=== PATIENT | female | born 1985 | race African-American/Black ===

== ENCOUNTER 2016-10-14 18:01 | Emergency (ER) | payer MEDICAID ==
[~2016-10-14] VITALS: Ht 180.3 cm; Wt 104.3 kg
[~2016-10-14 18:01] MED LIST: ALBUTEROL SULF8.5 GM INH; AMOXICILLIN500 MG ORAL; AUGMENTIN 875-1 EAC1 ORAL; AZITHROMYCIN250 MG ORAL; BACTRIM DS TAB1 EAC1 ORAL; BACTRIM-DS1 EA ORAL; CEPHALEXIN500 MG ORAL; CHERATUSSIN AC118 ML PO; CYCLOBENZAPRINE10 MG ORAL; IBUPROFEN400 MG ORAL; IBUPROFEN600 MG ORAL; IBUPROFEN800 MG ORAL; KEFLEX500 MG PO; MACRODANTIN100 MG PO; NKM; PRENATAL VITAMIN; TYLENOL500 MG PO; [UNRECOGNIZED DRUG - REMARK]
[2016-10-14] MEDS ORDERED: IBUPROFEN600 MG ORAL (18:57)
[2016-10-14] MEDS ORDERED: ATIVAN0.5 MG ORAL (18:57)
[2016-10-14 19:20] VITALS: BP 109/74
--- NOTE | 2016-10-14 21:01 | Emergency Room Report ---
History of Present Illness General Chief Complaint: Chest Pain Source: Patient Present Illness HPI The patient is a 30-year-old female history of anxiety disorder presenting for chest pain for the past 3 days. She describes this pain as a 5/10 dull ache to the center of the chest and has been constant. She denies any radiating pain. She does admit to increased stress at work for the past week. She has been unable to see a psychiatrist since diagnosis by her primary doctor. She has not tried any medications. She denies any other symptoms including N, V, F, chills, SOB, WILL, dizziness Allergies: Coded Allergies: No Known Allergies (Unverified , 01/23/12) Patient History Past Medical History: see triage record Pertinent Family History: none Last Menstrual Period: 09/17/16 : 3 Para: 1 Reviewed Nursing Documentation: PMH: Agreed, PSxH: Agreed Nursing Documentation-PMH Past Medical History: No History, Except For Hx Diabetes: Yes - gestational Review of Systems All Other Systems: negative except mentioned in HPI Physical Exam Vital Signs Date Time Temp Pulse Resp B/P Pulse Ox O2 Delivery O2 Flow Rate FiO2 10/14/16 18:06 98.4 72 17 106/65 100 Room Air Sp02 EP Interpretation: reviewed, normal General Appearance: no apparent distress, alert, GCS 15, non-toxic Head: normocephalic, atraumatic Eyes: bilateral eye PERRL, bilateral eye normal inspection ENT: hearing grossly normal, normal pharynx, no angioedema, normal voice Neck: full range of motion, supple/symm/no masses Respiratory: lungs clear, normal breath sounds, speaking full sentences, other - TTP over the mid sternum Cardiovascular #1: regular rate, rhythm, no edema Gastrointestinal: normal bowel sounds, non tender, soft, non-distended, no guarding, no rebound Genitourinary: normal inspection, no CVA tenderness Musculoskeletal: back normal, gait/station normal, normal range of motion, calf tenderness Neurologic: alert, oriented x3, responsive, motor strength/tone normal, sensory intact, speech normal Psychiatric: judgement/insight normal, memory normal, mood/affect normal, no suicidal/homicidal ideation Skin: normal color, no rash, warm/dry, well hydrated Lymphatic: no adenopathy Medical Decision Making PA Attestation Dr. Hall is my supervising physician. Patient management was discussed with my supervising physician Diagnostic Impression: Primary Impression: Anxiety Additional Impression: Chest pain Qualified Codes: R07.9 - Chest pain, unspecified ER Course The patient is a 30-year-old female history of anxiety disorder presenting for chest pain Differential diagnosis include but not limited to ACS, PE, gastritis, anxiety PE: vitals WNL. NAD There is TTP over the center of sternum. RRR. No MRG. Otherwise unremarkable EKG is unremarkable. She will be treated with low dose ativan and motrin and needs to see psychiatry RONNA. ER precautions given EKG Diagnostic Results EP Interpretation: NSR. No acute changes Rate: normal - 83 Rhythm: NSR ST Segments: no acute changes ASA given to the pt in ED: No PA Scribe Text EKG was reviewed and read with my supervising physician. No acute ST segment changes are seen. Normal rate and rhythm. No acute changes. Last Vital Signs Date Time Temp Pulse Resp B/P Pulse Ox O2 Delivery O2 Flow Rate FiO2 10/14/16 19:20 79 16 109/74 99 Room Air 10/14/16 19:20 98.6 Status: improved Disposition: HOME, SELF-CARE Condition: Improved Scripts Lorazepam* (ATIVAN*) 0.5 Mg Tablet 0.5 MG ORAL THREE TIMES A DAY, #10 TAB Prov: INOCENCIO NICHOLE 10/14/16 Ibuprofen* (MOTRIN*) 600 Mg Tablet 600 MG ORAL Q8H Y for For Pain, #30 TAB 0 Refills Prov: INOCENCIO NICHOLE 10/14/16 Referrals: [facility]ERR[facility] (PCP) Patient Instructions: Nonspecific Chest Pain, Panic Attacks Additional Instructions: I discussed my findings with the patient. All questions and concerns have been answered. Treatment and medication compliance have been addressed. I advised the patient that they need to follow up with PMD in 3-5 days. Return to ED if symptoms worsen, new symptoms arise, or if needed for any reason. Patient verbalized understanding of discharge instructions. INOCENCIO NICHOLE Oct 14, 2016 21:01
--- NOTE | 2016-10-17 20:13 | Cardiology Report ---
APPROVED REPORT EKG Measurement Heart [id number] Normal sinus rhythm with sinus arrhythmia Normal ECG
== END 2016-10-14 19:20 | disposition home or self-care (01) ==
LOC: EMR 18:50
DX: F41.9 Anxiety disorder, unspecified (principal); R07.9 Chest pain, unspecified
CPT/HCPCS: 93005; 99283

== ENCOUNTER 2017-03-13 11:48 | Emergency (ER) | payer MEDICAID ==
[~2017-03-13] VITALS: Ht 180.3 cm; Wt 90.7 kg
[~2017-03-13 11:48] MED LIST changes: +ATIVAN0.5 MG ORAL
[2017-03-13 11:52] VITALS: BP 116/75
--- NOTE | 2017-03-13 12:22 | Emergency Room Report ---
History of Present Illness General Chief Complaint: Vaginal Source: Patient Present Illness HPI The patient is a 31-year-old female presenting for pelvic pain and . Last normal menstrual period 01/23/2017. She took 2 at home tests which were postitive. She noticed pink spotting on tissue paper with wiping the vagina. Abdominal pain is a 3/10 dull ache to the mid lower abdomen. This is felt as a cramping sensation. She denies any other vaginal discharge. She denies other symptoms including N, V, F, chills, CP, SOB, back pain, dysuria Allergies: Coded Allergies: No Known Allergies (Unverified , 01/23/12) Patient History Past Medical History: see triage record Pertinent Family History: none Last Menstrual Period: 01/23/17 Now: Yes - Home + x 2 Reviewed Nursing Documentation: PMH: Agreed, PSxH: Agreed Nursing Documentation-PMH Past Medical History: No Stated History Hx Diabetes: Yes - gestational Review of Systems All Other Systems: negative except mentioned in HPI Physical Exam Vital Signs Date Time Temp Pulse Resp B/P (MAP) Pulse Ox O2 Delivery O2 Flow Rate FiO2 03/13/17 11:52 98.8 70 16 116/75 100 Room Air Sp02 EP Interpretation: reviewed, normal General Appearance: no apparent distress, alert, GCS 15, non-toxic Head: normocephalic, atraumatic Eyes: bilateral eye normal inspection, bilateral eye PERRL ENT: hearing grossly normal, normal pharynx, no angioedema, normal voice Respiratory: chest non-tender, lungs clear, normal breath sounds, speaking full sentences Cardiovascular #1: regular rate, rhythm, no edema Gastrointestinal: normal bowel sounds, soft, no mass, no guarding, tenderness - suprapubic Rectal: deferred Genitourinary: normal inspection, no CVA tenderness Musculoskeletal: back normal, gait/station normal, normal range of motion, non- tender Neurologic: alert, oriented x3, responsive, motor strength/tone normal, sensory intact, speech normal Psychiatric: judgement/insight normal, memory normal, mood/affect normal, no suicidal/homicidal ideation Skin: normal color, no rash, warm/dry, well hydrated Medical Decision Making PA Attestation Dr. Mendoza is my supervising physician. Patient management was discussed with my supervising physician Diagnostic Impression: Primary Impression: Threatened miscarriage Additional Impression: Bacterial vaginosis ER Course The patient is a 31-year-old female presenting for pelvic pain and . Differential diagnoses considered include but not limited to Early , threatened , ectopic , hemorrhagic cyst, UTI PE: NAD Abdomen is soft. Nondistended. There is tenderness to palpation over suprapubic region only. No CVA tenderness CBC: no Leukocytosis. CMP unremarkable. Beta-hCG is appropriate for gestational age Urinalysis shows squamous cells OB ultrasound was ordered but the patient states that she does not want to wait. She was informed of the risks associated with this. She will be treated for BV and needs to see OB RONNA. SHe was told to return for US if she changes her mind or for any reason Laboratory Tests Test 03/13/17 12:30 03/13/17 12:40 Urine Color Yellow Urine Appearance Slightly cloudy Urine pH 7 (4.5-8.0) Urine Specific [place] 1.010 (1.005-1.035) Urine Protein 1+ (NEGATIVE) H Urine Glucose (UA) Negative (NEGATIVE) Urine Ketones 2+ (NEGATIVE) H Urine Occult Blood 1+ (NEGATIVE) H Urine Nitrite Negative (NEGATIVE) Urine Bilirubin Negative (NEGATIVE) Urine Urobilinogen Normal MG/DL (0.0-1.0) Urine Leukocyte Esterase 1+ (NEGATIVE) H Urine RBC 2-4 /HPF (0 - 2) H Urine WBC 2-4 /HPF (0 - 2) Urine Squamous Epithelial Cells Moderate /LPF (NONE/OCC) H Urine Bacteria Few /HPF (NONE) Urine Mucus Moderate /LPF (NONE/OCC) H Urine HCG, Qualitative Positive White Blood Count 5.9 K/UL (4.8-10.8) Red Blood Count 4.46 M/UL (4.20-5.40) Hemoglobin 11.8 G/DL (12.0-16.0) L Hematocrit 37.4 % (37.0-47.0) Mean Corpuscular Volume 84 FL (80-99) Mean Corpuscular Hemoglobin 26.5 PG (27.0-31.0) L Mean Corpuscular Hemoglobin Concent 31.6 G/DL (32.0-36.0) L Red Cell Distribution Width 13.6 % (11.6-14.8) Platelet Count 224 K/UL (150-450) Mean Platelet Volume 10.3 FL (6.5-10.1) H Neutrophils (%) (Auto) 55.1 % (45.0-75.0) Lymphocytes (%) (Auto) 34.1 % (20.0-45.0) Monocytes (%) (Auto) 7.5 % (1.0-10.0) Eosinophils (%) (Auto) 1.9 % (0.0-3.0) Basophils (%) (Auto) 1.4 % (0.0-2.0) Prothrombin Time 10.7 SEC (9.30-11.50) Prothrombin Time INR 1.0 (0.9-1.1) PTT 29 SEC (23-33) Sodium Level 138 MMOL/L (136-145) Potassium Level 3.1 MMOL/L (3.5-5.1) L Chloride Level 102 MMOL/L (98-107) Carbon Dioxide Level 26 MMOL/L (21-32) Anion Gap 10 mmol/L (5-15) Blood Urea Nitrogen 6 mg/dL (7-18) L Creatinine 0.8 MG/DL (0.55-1.30) Estimate Glomerular Filtration Rate > 60 mL/min (>60) Glucose Level 86 MG/DL (74-106) Calcium Level 8.5 MG/DL (8.5-10.1) Total Bilirubin 0.5 MG/DL (0.2-1.0) Aspartate Amino Transferase (AST) 20 U/L (15-37) Alanine Aminotransferase (ALT) 18 U/L (12-78) Alkaline Phosphatase 48 U/L (46-116) Total Protein 7.5 G/DL (6.4-8.2) Albumin 3.6 G/DL (3.4-5.0) Globulin 3.9 g/dL Albumin/Globulin Ratio 0.9 (1.0-2.7) L Human Chorionic Gonadotropin, Quant 42559 mIU/mL (1-6) H Lab Results Impression CBC: no Leukocytosis. CMP unremarkable. Beta-hCG is appropriate for gestational age Urinalysis shows squamous cells Last Vital Signs Date Time Temp Pulse Resp B/P (MAP) Pulse Ox O2 Delivery O2 Flow Rate FiO2 03/13/17 11:52 98.8 70 16 116/75 100 Room Air Status: improved Disposition: HOME, SELF-CARE Condition: Improved Scripts Metronidazole* (FLAGYL*) 500 Mg Tablet 500 MG ORAL BID, #14 TAB 0 Refills Prov: INOCENCIO NICHOLE 03/13/17 INOCENCIO NICHOLE Mar 13, 2017 12:22
[2017-03-13 12:55] LABS: APPEARANCE,URINE SLIGHTLY CLOUDY; KETONES,URINE 2+ (NEGATIVE); LEUKOCYTE ESTERASE ,URINE 1+ (NEGATIVE); NITRITE,URINE NEGATIVE (NEGATIVE); PH,URINE 7 (4.5-8.0); PROTEIN,URINE 1+ (NEGATIVE); UROBILINOGEN,URINE NORMAL MG/DL (0.0-1.0)
[2017-03-13 12:58] LABS: BASOPHILS % (AUTO) 1.4 % (0.0-2.0); EOSINOPHILS % (AUTO) 1.9 % (0.0-3.0); LYMPHOCYTES % (AUTO) 34.1 % (20.0-45.0); MEAN CORPUSCULAR HEMOGLOBIN 26.5 PG (27.0-31.0); MEAN CORPUSCULAR HGB CONC 31.6 G/DL (32.0-36.0); MEAN CORPUSCULAR VOLUME 84 FL (80-99); MEAN PLATELET VOLUME 10.3 FL (6.5-10.1); MONOCYTES % (AUTO) 7.5 % (1.0-10.0); NEUTROPHILS % (AUTO) 55.1 % (45.0-75.0); PLATELET COUNT 224 K/UL (150-450); RED BLOOD COUNT 4.46 M/UL (4.20-5.40); RED CELL DISTRIBUTION WIDTH 13.6 % (11.6-14.8); WHITE BLOOD COUNT 5.9 K/UL (4.8-10.8)
[2017-03-13 13:05] LABS: BACTERIA,URINE FEW /HPF; SQUAMOUS EPITHELIAL CELL,UR MODERATE /LPF (NONE/OCC)
[2017-03-13 13:06] LABS: MUCUS,URINE MODERATE /LPF (NONE/OCC)
[2017-03-13 13:06] LABS: ANION GAP 10 mmol/L (5-15); CALCIUM 8.5 MG/DL (8.5-10.1); CARBON DIOXIDE 26 MMOL/L (21-32); CHLORIDE 102 MMOL/L (98-107); CREATININE 0.8 MG/DL (0.55-1.30); GLOMERULAR FILTRATION RATE > 60 mL/min (>60); POTASSIUM 3.1 MMOL/L (3.5-5.1); SODIUM 138 MMOL/L (136-145)
[2017-03-13 13:08] LABS: PROTHROMBIN TIME 10.7 SEC (9.30-11.50)
[2017-03-13 13:10] LABS: ALANINE AMINOTRANSFERASE 18 U/L (12-78); ALBUMIN/GLOBULIN RATIO 0.9 (1.0-2.7); ASPARTATE AMINO TRANSFERASE 20 U/L (15-37); TOTAL PROTEIN 7.5 G/DL (6.4-8.2)
[2017-03-13] MEDS ORDERED: METRONIDAZOLE500 MG ORAL (15:38)
[2017-03-13 15:45] VITALS: BP 116/75
== END 2017-03-13 15:45 | disposition home or self-care (01) ==
LOC: EMR 12:25
DX: O20.0 Threatened abortion (principal); O23.599 Infection of other part of genital tract in pregnancy, unspecified trimester; N76.0 Acute vaginitis; B96.89 Other specified bacterial agents as the cause of diseases classified elsewhere; O26.859 Spotting complicating pregnancy, unspecified trimester; O09.299 Supervision of pregnancy with other poor reproductive or obstetric history, unspecified trimester
CPT/HCPCS: 36415; 80053; 81003; 81025; 84702; 85025; 85610; 85730; 96361; 96374; 99284

== ENCOUNTER 2017-03-15 15:45 | Emergency (ER) | payer MEDICAID ==
[~2017-03-15] VITALS: Ht 180.3 cm; Wt 117.9 kg
[~2017-03-15 15:45] MED LIST changes: +METRONIDAZOLE500 MG ORAL
[2017-03-15 15:59] VITALS: BP 118/71
[2017-03-15] MEDS ORDERED: Acetaminophen 500mg (ES) tab ORAL ONE (16:15)
--- NOTE | 2017-03-15 16:44 | Emergency Room Report ---
History of Present Illness General Chief Complaint: Abdominal Pain Source: Patient Present Illness HPI 31-year-old female, , one , one miscarriage, however unknown number of weeks, LMP January 23 p/w presenting with 4 days of abdominal pain. Patient states that she was seen here on Monday, she had vaginal spotting for one day, states that she left AGAINST MEDICAL ADVICE before the sonogram was performed because she had to pick up man her son. Patient states that she no longer had any bleeding only that single day, however has had persistent pain, pointing to her suprapubic area. Intermittent. Sharp. Denies any fever chills nausea vomiting diarrhea. No abnormal vaginal discharge Patient has not had official sono or had her first appt. Denies hx of ectopic pregnancies. Allergies: Coded Allergies: No Known Allergies (Unverified , 01/23/12) Patient History Past Medical History: see triage record Past Surgical History: none Pertinent Family History: none Now: Yes : 4 Para: 1 Reviewed Nursing Documentation: PMH: Agreed, PSxH: Agreed Nursing Documentation-PMH Past Medical History: No History, Except For Hx Diabetes: Yes - gestational Review of Systems All Other Systems: negative except mentioned in HPI Physical Exam Vital Signs Date Time Temp Pulse Resp B/P (MAP) Pulse Ox O2 Delivery O2 Flow Rate FiO2 03/15/17 15:59 98.1 65 18 118/71 100 Room Air Sp02 EP Interpretation: reviewed, normal General Appearance: normal inspection, well appearing, no apparent distress, alert, GCS 15, non-toxic Head: normocephalic, atraumatic Eyes: bilateral eye normal inspection, bilateral eye PERRL, bilateral eye EOMI ENT: normal ENT inspection, normal pharynx, normal voice, moist mucus membranes Neck: normal inspection, full range of motion, supple Respiratory: normal inspection, lungs clear, normal breath sounds, no respiratory distress, no retraction, no wheezing, speaking full sentences, chest symmetrical Cardiovascular #1: normal inspection, regular rate, rhythm, no edema, normal capillary refill Cardiovascular #2: 2+ radial (R), 2+ radial (L) Gastrointestinal: normal inspection, non tender, soft, non-distended, no guarding Musculoskeletal: normal inspection, back normal, normal range of motion, non- tender Neurologic: normal inspection, alert, oriented x3, responsive, motor strength/ tone normal, sensory intact, normal gait, speech normal Psychiatric: normal inspection, judgement/insight normal, memory normal Skin: normal inspection, normal color, no rash, warm/dry, well hydrated, normal turgor Medical Decision Making Diagnostic Impression: Primary Impression: Additional Impression: Subchorionic hemorrhage ER Course 31-year-old female, , had vaginal bleeding on Monday, presenting with abdominal pain DDX: threatened / inevitable vs. ectopic versus ovarian pathology Versus UTI/pyelo At this time abdomen is very soft and nontender all quadrants, I am not concerned with appendicitis diverticulitis at this time given benign abdomen Plan: cbc, bmp, bhcg, type and screen, ua, ucx pelvic sono ER course: Pelvic sono: IUP with good FHR. Pt remains stable/nontoxic appearing in ED. Pt has been ambulatory. VSS patient sono showing: IUP with FHR 136, minimal free fluid, small subchorionic bleed patient very stable, feels better, no meds needed in ED I want to consult OBGYN however patient stating she has to leave to pick up man her son and leaving AMA Patient is clinically sober, is free from from distracting injury, and has intact judgement and capacity to decide to leave against medical advice. Patient came in for abdominal pain and Patient verbalized understanding of my concern and my need to consult [employer] for the small subchorionic bleed, but patient states "I feel better, I cannot stay, I have to pick up man my son ". I explained to patient the risks of leaving AMA and patient informed that if they leave, they could get worse, ould become become critically ill, possibly become disabled or . Patient verbalized back to me understanding of these risks but still wants to leave. Disposition: Patient will leave AMA Strict return precautions to discussed with patient such as high fever, chills, abdominal pain, intractable nausea or vomiting, worsening/heavy bleeding, lightheadedness or syncope. Patient verbalized understanding. Patient instructed to follow up with her OBGYN within 2 days Please note that this Emergency Department Report was dictated using [employer] powdered sugar technology software, occasionally this can lead to erroneous entry secondary to interpretation by the dictation equipment. Rhythm Strip EP Interpretation: Yes Rate:65 Rhythm: NSR, no PVCs, no ectopy Laboratory Tests Test 03/15/17 16:30 03/15/17 16:50 Urine Color Yellow Urine Appearance Slightly cloudy Urine pH 6 (4.5-8.0) Urine Specific [place] 1.020 (1.005-1.035) Urine Protein Negative (NEGATIVE) Urine Glucose (UA) Negative (NEGATIVE) Urine Ketones Negative (NEGATIVE) Urine Occult Blood Negative (NEGATIVE) Urine Nitrite Negative (NEGATIVE) Urine Bilirubin Negative (NEGATIVE) Urine Urobilinogen Normal MG/DL (0.0-1.0) Urine Leukocyte Esterase 1+ (NEGATIVE) H Urine RBC 0-2 /HPF (0 - 2) Urine WBC 2-4 /HPF (0 - 2) Urine Squamous Epithelial Cells Many /LPF (NONE/OCC) H Urine Bacteria Occasional /HPF (NONE) Urine HCG, Qualitative Positive White Blood Count 7.9 K/UL (4.8-10.8) Red Blood Count 3.95 M/UL (4.20-5.40) L Hemoglobin 10.5 G/DL (12.0-16.0) L Hematocrit 32.8 % (37.0-47.0) L Mean Corpuscular Volume 83 FL (80-99) Mean Corpuscular Hemoglobin 26.5 PG (27.0-31.0) L Mean Corpuscular Hemoglobin Concent 32.0 G/DL (32.0-36.0) Red Cell Distribution Width 13.6 % (11.6-14.8) Platelet Count 177 K/UL (150-450) Mean Platelet Volume 9.5 FL (6.5-10.1) Neutrophils (%) (Auto) 55.5 % (45.0-75.0) Lymphocytes (%) (Auto) 34.2 % (20.0-45.0) Monocytes (%) (Auto) 7.6 % (1.0-10.0) Eosinophils (%) (Auto) 1.8 % (0.0-3.0) Basophils (%) (Auto) 0.9 % (0.0-2.0) Sodium Level 139 MMOL/L (136-145) Potassium Level 3.5 MMOL/L (3.5-5.1) Chloride Level 104 MMOL/L (98-107) Carbon Dioxide Level 25 MMOL/L (21-32) Anion Gap 11 mmol/L (5-15) Blood Urea Nitrogen 6 mg/dL (7-18) L Creatinine 0.8 MG/DL (0.55-1.30) Estimate Glomerular Filtration Rate > 60 mL/min (>60) Glucose Level 81 MG/DL (74-106) Calcium Level 8.7 MG/DL (8.5-10.1) Total Bilirubin 0.3 MG/DL (0.2-1.0) Aspartate Amino Transferase (AST) 16 U/L (15-37) Alanine Aminotransferase (ALT) 14 U/L (12-78) Alkaline Phosphatase 48 U/L (46-116) Total Protein 7.0 G/DL (6.4-8.2) Albumin 3.3 G/DL (3.4-5.0) L Globulin 3.7 g/dL Albumin/Globulin Ratio 0.9 (1.0-2.7) L Lipase 94 U/L (73-393) Human Chorionic Gonadotropin, Quant 34264 mIU/mL (1-6) H Last Vital Signs Date Time Temp Pulse Resp B/P (MAP) Pulse Ox O2 Delivery O2 Flow Rate FiO2 03/15/17 15:59 98.1 65 18 118/71 100 Room Air Disposition: AGAINST MEDICAL ADVICE Condition: Stable Patient Instructions: Abdominal Pain During Batsheva Rodgers M.D. Mar 15, 2017 16:44
[2017-03-15 17:01] LABS: APPEARANCE,URINE SLIGHTLY CLOUDY; KETONES,URINE NEGATIVE (NEGATIVE); LEUKOCYTE ESTERASE ,URINE 1+ (NEGATIVE); NITRITE,URINE NEGATIVE (NEGATIVE); PH,URINE 6 (4.5-8.0); PROTEIN,URINE NEGATIVE (NEGATIVE); UROBILINOGEN,URINE NORMAL MG/DL (0.0-1.0)
[2017-03-15 17:12] LABS: BASOPHILS % (AUTO) 0.9 % (0.0-2.0); EOSINOPHILS % (AUTO) 1.8 % (0.0-3.0); LYMPHOCYTES % (AUTO) 34.2 % (20.0-45.0); MEAN CORPUSCULAR HEMOGLOBIN 26.5 PG (27.0-31.0); MEAN CORPUSCULAR VOLUME 83 FL (80-99); MEAN PLATELET VOLUME 9.5 FL (6.5-10.1); MONOCYTES % (AUTO) 7.6 % (1.0-10.0); NEUTROPHILS % (AUTO) 55.5 % (45.0-75.0); PLATELET COUNT 177 K/UL (150-450); RED BLOOD COUNT 3.95 M/UL (4.20-5.40); RED CELL DISTRIBUTION WIDTH 13.6 % (11.6-14.8); WHITE BLOOD COUNT 7.9 K/UL (4.8-10.8)
[2017-03-15 17:14] LABS: ANION GAP 11 mmol/L (5-15); CALCIUM 8.7 MG/DL (8.5-10.1); CARBON DIOXIDE 25 MMOL/L (21-32); CHLORIDE 104 MMOL/L (98-107); CREATININE 0.8 MG/DL (0.55-1.30); GLOMERULAR FILTRATION RATE > 60 mL/min (>60); POTASSIUM 3.5 MMOL/L (3.5-5.1); SODIUM 139 MMOL/L (136-145)
[2017-03-15 17:17] LABS: BACTERIA,URINE OCCASIONAL /HPF; RBC,URINE 0-2 /HPF (0 - 2); SQUAMOUS EPITHELIAL CELL,UR MANY /LPF (NONE/OCC)
[2017-03-15 17:19] LABS: ALANINE AMINOTRANSFERASE 14 U/L (12-78); ALBUMIN/GLOBULIN RATIO 0.9 (1.0-2.7); ASPARTATE AMINO TRANSFERASE 16 U/L (15-37); LIPASE 94 U/L (73-393)
[2017-03-15 18:00] VITALS: BP 110/63
[2017-03-15 18:20] VITALS: BP 118/73
--- NOTE | 2017-03-16 08:30 | Diagnostic Imaging Report ---
Indication: PAIN Technique: Obstetrical ultrasound performed both transabdominally and endovaginally. Comparison: None. Findings: There is a single live intrauterine . Embryo is identified. There is a yolk sac. Subchorionic fluid is noted. The right ovary is unremarkable. The left ovary is also normal. The heart rate is 139 beats from minute. Fluid is noted in the cul-de-sac. [place]-rump length of the embryo corresponds to 7 weeks 1 day +/- 4 days. Impression: Single live intrauterine at 7 weeks 1 day +/- 4 days. Minimal subchorionic bleed. Small amount fluid in the cul-de-sac.
== END 2017-03-15 18:20 | disposition left against medical advice (07) ==
LOC: EMR 16:51
DX: O20.9 Hemorrhage in early pregnancy, unspecified (principal); Z3A.01 Less than 8 weeks gestation of pregnancy
CPT/HCPCS: 36415; 76801; 76830; 80053; 81003; 81025; 83690; 84702; 85025; 86850; 86900; 86901; 99284

== ENCOUNTER 2017-11-21 17:26 | Emergency (ER) | payer MEDICAID ==
[~2017-11-21] VITALS: Ht 180.3 cm; Wt 113.4 kg
[2017-11-21 17:42] VITALS: BP 118/72
[2017-11-21] MEDS ORDERED: HYDROCORTISONE-30 GM TOPIC (18:01)
[2017-11-21] MEDS ORDERED: BENADRYL25 MG ORAL (18:01)
--- NOTE | 2017-11-21 18:01 | Emergency Room Report ---
History of Present Illness General Chief Complaint: Skin Rash/Abscess Source: Patient, Medical Record Present Illness HPI 31 yo Female patient presents ER complaining of rash on bilateral upper extremities. Patient reports burning discomfort and itching. Reports she has been scratching at the rash. States that first appeared 2 days ago on right arm and then appeared on her left arm. Denies new detergents or soaps at home. Denies contacts similar symptoms. Denies fever, chills, shortness breath, vomiting, other acute symptoms. Denies drugs or recent abx use. States has not take any medications for relief of symptoms. Allergies: Coded Allergies: No Known Allergies (Unverified , 01/23/12) Patient History Past Medical History: see triage record Last Menstrual Period: 09/17/17 Reviewed Nursing Documentation: PMH: Agreed; PSxH: Agreed Nursing Documentation-PMH Past Medical History: No History, Except For Hx Diabetes: Yes - gestational Review of Systems All Other Systems: negative except mentioned in HPI Physical Exam Vital Signs Date Time Temp Pulse Resp B/P (MAP) Pulse Ox O2 Delivery O2 Flow Rate FiO2 11/21/17 17:42 98.7 86 18 118/72 98 Room Air 98.8 Sp02 EP Interpretation: reviewed, normal General Appearance: well appearing, no apparent distress, alert, GCS 15, non- toxic Head: normocephalic, atraumatic Eyes: bilateral eye normal inspection, bilateral eye PERRL ENT: hearing grossly normal, normal pharynx, no angioedema, normal voice, uvula midline, moist mucus membranes Neck: full range of motion Respiratory: lungs clear, normal breath sounds, no rhonchi, no respiratory distress, no accessory muscle use, no wheezing, speaking full sentences Cardiovascular #1: regular rate, rhythm, no edema Musculoskeletal: back normal, digits/nails normal, gait/station normal, normal range of motion, non-tender Neurologic: alert, oriented x3, responsive, motor strength/tone normal, sensory intact Psychiatric: mood/affect normal Skin: rash - multiple 1-2mm papules on bilateral upper extremity: radial aspect of from distal humerus to proximal forearm, does not extend into antecubital fossa; no erythema or edema, no comedones, no blisters, no vesicles , does not follow dermatomes, no TTP, no crepitus Medical Decision Making PA Attestation Dr. Nye is my supervising Physician whom patient management has been discussed with. Diagnostic Impression: Primary Impression: Rash and other nonspecific skin eruption ER Course Pt. presents to the ED c/o rash on bilateral upper extremities. Ddx considered but are not limited to atopic dermatitis, scabies, shingles, hives, urticaria, angioedema, allergic reaction, impetigo. Vital signs: are WNL, pt. is afebrile ER COURSE no vesicles or blisters, does not follow single dermatome, low suspicion for shingles. Apply cool compresses. Do not scratch or itch. Possible dermatitis. BEnadryl for itching symptoms. Followup with PCP at scheduled appointment and request referral to dermatology. DISCHARGE: -Rx given for Benadryl for pruritis. SE drowsiness, do not take prior to drinking, driving, operating heavy machinery. -Rx given for Hydrocortisone. does not apply to face or skin creases. At this time pt. is stable for d/c to home. Patient resting comfortably, in no acute distress, nontoxic appearing, smiling. Will provide printed patient care instructions, and any necessary prescriptions. Care plan and follow up instructions have been discussed with the patient prior to discharge. Patient provided with list of healthcare clinics to establish primary care physician. Patient instructed to follow-up with primary care provider in 3 - 5 days. Patient questions asked and answered. ER precautions given. Patient instructed to return to ER immediately for any new or worsening of symptoms including but not limited to increasing SOB, persistent fever. - Please note that this Emergency Department Report was dictated using [employer] technology software, occasionally this can lead to erroneous entry secondary to interpretation by the dictation equipment. Last Vital Signs Date Time Temp Pulse Resp B/P (MAP) Pulse Ox O2 Delivery O2 Flow Rate FiO2 11/21/17 17:42 98.7 86 18 118/72 98 Room Air 98.8 Disposition: HOME, SELF-CARE Condition: Stable Scripts Diphenhydramine Hcl* (BENADRYL*) 25 Mg Capsule 25 MG ORAL DAILY PRN for Itching, #30 CAP Prov: Hayes [email or web address] 11/21/17 Hydrocortisone/Aloe Vera 1%* (HYDROCORTISONE-ALOE 1% CREAM*) Y Cr 1 APPLIC TOPIC BID PRN for Itching, #30 GM Prov: [email or web address] 11/21/17 Patient Instructions: Folliculitis, Rash Additional Instructions: Followup with primary care provider in 3 -5 days. Request referral to derm. Do not apply medication to face or skin creases. Take medications as directed. SE drowsiness, do not take prior to drinking, driving, operating heavy machinery. Apply cool compresses to affected areas. Patient questions asked and answered. ER precautions given, patient instructed to return to ER immediately for any new or worsening of symptoms. Hayes Singh Nov 21, 2017 18:01
[2017-11-21 18:06] VITALS: BP 122/71
== END 2017-11-21 18:07 | disposition home or self-care (01) ==
LOC: EMR 17:53
DX: R21 Rash and other nonspecific skin eruption (principal)
CPT/HCPCS: 99283

== ENCOUNTER 2018-05-17 14:12 | Emergency (ER) | payer MEDICAID ==
[~2018-05-17] VITALS: Ht 180.3 cm; Wt 131.5 kg
[~2018-05-17 14:12] MED LIST changes: +BENADRYL25 MG ORAL; +HYDROCORTISONE-30 GM TOPIC
--- NOTE | 2018-05-17 14:20 | NUR ---
ED Nurse Note: vaginal pain X 1 week and clear discharge X 2 days. denies having sexual intercourse before s/s. Pt. stated " I haven't had sex forever" patient is alert and oriented x4, ambulatory with a steady gait, VSS
[2018-05-17 14:26] VITALS: BP 124/80
[2018-05-17] MEDS ORDERED: Azithromycin 250mg tab ORAL ONE (14:45)
[2018-05-17] MEDS ORDERED: Lidocaine 1% MPF 10mg/ml 5ml INJ ONE (14:45)
--- NOTE | 2018-05-17 14:55 | Emergency Room Report ---
History of Present Illness General Chief Complaint: Female Urogenital Problems Source: Patient, Medical Record Present Illness HPI 32-year-old female patient presents the ER complaining of outer vaginal pain times 2 days. Reports pain at her "vaginal hole". Denies bleeding. Denies pain with sexual intercourse. Reports attempted to go to her [facility] doctor earlier today but was unable to get appointment for the next 2 weeks. Denies dysuria, hematuria. Denies spotting. Reports clear vaginal discharge during this time. Denies foul-smelling odor. Reports recent sexual activity without protection. Reports concern for possible STI. Denies fever, chest pain, shortness of breath, abdominal pain. Denies rash. Denies lesions. Denies other aggravating or relieving factors. Denies pain with sexual activity. Allergies: Coded Allergies: No Known Allergies (Unverified , 01/23/12) Patient History Past Medical History: see triage record Last Menstrual Period: 04/29/18 Now: No Reviewed Nursing Documentation: PMH: Agreed; PSxH: Agreed Nursing Documentation-PMH Hx Diabetes: Yes - gestational Review of Systems All Other Systems: negative except mentioned in HPI Physical Exam Vital Signs Date Time Temp Pulse Resp B/P (MAP) Pulse Ox O2 Delivery O2 Flow Rate FiO2 05/17/18 14:16 98.2 95 18 124/80 96 Room Air Sp02 EP Interpretation: reviewed, normal General Appearance: well appearing, no apparent distress, alert, GCS 15, non- toxic Head: normocephalic, atraumatic Eyes: bilateral eye normal inspection, bilateral eye PERRL ENT: hearing grossly normal, normal pharynx, no angioedema, normal voice, uvula midline, moist mucus membranes Neck: full range of motion Respiratory: lungs clear, normal breath sounds, no rhonchi, no respiratory distress, no accessory muscle use, no wheezing, speaking full sentences Cardiovascular #1: regular rate, rhythm, no edema Gastrointestinal: non tender, soft, no mass, non-distended, no guarding, no rebound Genitourinary: no CVA tenderness, cervix normal, ext genitalia/vag normal, os closed, other - Clear discharge noted at cervical os, no cervical motion tenderness, no laceration, no rash, no herpetic lesions, no bleeding Musculoskeletal: back normal, digits/nails normal, gait/station normal, normal range of motion, non-tender Neurologic: alert, oriented x3, responsive, motor strength/tone normal, sensory intact Psychiatric: mood/affect normal Skin: no rash Medical Decision Making PA Attestation Dr. Mendoza is my supervising Physician whom patient management has been discussed with. Diagnostic Impression: Primary Impression: Encounter for assessment of sexually transmitted disease exposure Additional Impression: Vaginal pain ER Course Pt. presents to the ED c/o " vaginal hole" pain and concern for STI. Ddx considered but are not limited to gonorrhea, chlamydia, cystitis, pyelonephritis, bacterial vaginosis, yeast infection, vaginitis, PID, torsion, abrasion, laceration. Vital signs: are WNL, pt. is afebrile Ordered UA and abx. ER COURSE: Pelvic exam performed with female nurse present. External genitalia shows no rash or lesions. No laceration or abrasions noted on vaginal wall during pelvic exam, no herpetic lesions or rash noted. No cervical motion tenderness on bimanual exam, no pain with sexual activity. Low suspicion for PID. UA results show negative, no signs of infection does not require antibiotics at this time. Urine negative Wet mount shows no yeast, no clue cells, no trichomonas, epithelial cells noted , likely contaminated sample, low suspicion for BV or yeast infection. Does not require tx at this time. Advised patient follow-up with primary care provider and [facility] specialist. Discussed need for ultrasound imaging at that time. Take Tylenol for pain symptoms. Provided patient with Rocephin and Azithromycin in the ER. Informed patient medications will cover for gonorrhea and chlamydia, needs further follow-up evaluation and possible treatment of other sexual transmitted infections. Advised to use safe sex practices including but not limited to use of condoms. Avoid sexual activity for the next 2 weeks. Instructed patient to follow up with STI clinic and/or PCP for STI evaluation and further treatment as necessary. Instructed patient to inform partners of needs for evaluation and treatment of possible infections. DISCHARGE: Patient is resting comfortably, in no acute distress, nontoxic appearing, talking without difficulty. Patient to take medications as instructed Will provide with patient care instructions and any necessary prescriptions. Care plan and follow-up instructions provided. Patient instructed to follow-up with primary care provider in 3 - 5 days. Patient questions asked and answered. Patient reports understanding and agreement to treatment plan. ER precautions given. Patient instructed to return to ER immediately for any new or worsening of symptoms including but not limited to increasing SOB, persistent fever. - Please note that this Emergency Department Report was dictated using [employer] varnisher technology software, occasionally this can lead to erroneous entry secondary to interpretation by the dictation equipment. Labs Test 05/17/18 14:45 Urine Color Pale yellow Urine Appearance Clear Urine pH 7 (4.5-8.0) Urine Specific [place] 1.010 (1.005-1.035) Urine Protein Negative (NEGATIVE) Urine Glucose (UA) Negative (NEGATIVE) Urine Ketones Negative (NEGATIVE) Urine Blood Negative (NEGATIVE) Urine Nitrite Negative (NEGATIVE) Urine Bilirubin Negative (NEGATIVE) Urine Urobilinogen Normal MG/DL (0.0-1.0) Urine Leukocyte Esterase Negative (NEGATIVE) Urine HCG, Qualitative Negative (NEGATIVE) Last Vital Signs Date Time Temp Pulse Resp B/P (MAP) Pulse Ox O2 Delivery O2 Flow Rate FiO2 05/17/18 14:26 98.2 95 18 124/80 96 Room Air Disposition: HOME, SELF-CARE Condition: Stable Scripts Acetaminophen* (TYLENOL EXTRA STRENGTH*) 500 Mg Tablet 500 MG ORAL Q8H PRN for Prn Headache/Temp > 101, #30 TAB 0 Refills Prov: Hayes Singh 05/17/18 Referrals: NON PHYSICIAN (PCP) Patient Instructions: Sexually Transmitted Disease, [id number] Additional Instructions: Followup with primary care provider and followup with STI clinic for further evaluation and treatment. Follow-up with [facility] in 2-3 days. Discussed need for pelvic ultrasound at that time. Alert sexual partners for need for evaluation and treatment. Wear condoms during sex. Avoid sexual activity for 2 weeks. Drink plenty of fluids. Patient questions asked and answered. ER precautions given, patient instructed to return to ER immediately for any new or worsening of symptoms. Hayes Singh May 17, 2018 14:55
[2018-05-17 15:09] LABS: APPEARANCE,URINE CLEAR; BILIRUBIN, URINE NEGATIVE (NEGATIVE); COLOR,URINE PALE YELLOW; GLUCOSE, URINE (UA) NEGATIVE (NEGATIVE); KETONES,URINE NEGATIVE (NEGATIVE); LEUKOCYTE ESTERASE ,URINE NEGATIVE (NEGATIVE); NITRITE,URINE NEGATIVE (NEGATIVE); PH,URINE 7 (4.5-8.0); PROTEIN,URINE NEGATIVE (NEGATIVE); UROBILINOGEN,URINE NORMAL MG/DL (0.0-1.0)
[2018-05-17] MEDS ORDERED: TYLENOL EXTRA500 MG ORAL (16:05)
[2018-05-17 16:14] VITALS: BP 120/76
--- NOTE | 2018-05-17 16:15 | NUR ---
ED Nurse Note: Patient is beign discahrged from ED after being medically cleared by ERMD, patient acknowledged the need to follow up with PMD within a week if symptoms dont improve, patient's prescriptions in hand and is leaving ambulatory with a steady gait, VSS, no distress noted, Id band removed
== END 2018-05-17 16:15 | disposition home or self-care (01) ==
LOC: EMR 14:43
DX: R10.2 Pelvic and perineal pain (principal); Z20.2 Contact with and (suspected) exposure to infections with a predominantly sexual mode of transmission
CPT/HCPCS: 81003; 81025; 87210; 96372; 96374; 99284; J0696; Q0144

== ENCOUNTER 2018-10-11 11:35 | Emergency (ER) | payer MEDICAID ==
[~2018-10-11] VITALS: Ht 182.9 cm; Wt 113.4 kg
[~2018-10-11 11:35] MED LIST changes: +TYLENOL EXTRA500 MG ORAL
[2018-10-11 12:42] VITALS: BP 127/85
--- NOTE | 2018-10-11 12:44 | NUR ---
ED Nurse Note: pt c/o upper body pain and black outs. ermd eval done awaiting orders.
--- NOTE | 2018-10-11 12:49 | Emergency Room Report ---
History of Present Illness General Chief Complaint: General Complaint Present Illness HPI 32-year-old female presents to the emergency department complaining of 6 out of 10 severity intermittent muscle spasms over the course of 4 months. Patient also is reporting new onset of tearfulness, sadness and anxiety-like reactions to tremendous amount of stress that she is going through she denies SI or HI she denies PSAs or illicit drug use she denies previous psychiatric hospitalizations she is interested in some mental health resources. Patient states that she is having difficulty concentrating lately and on occasion forgetfulness where she cannot remember what she is doing. Patient denies difficulty with word recall she denies recent trauma or fall she denies nausea, vomiting, facial droop, unilateral weakness in the extremities or inability to walk. Patient denies Syncope, LOC, dizziness, vertigo or imbalance. She denies chest pain or palpitations. She reports her diet has been somewhat poor lately and she has not been eating and sleeping regularly. Denies hallucinations, delusions or paresthesias. She reports that she has not had a period in 3 months and denies taking control. Allergies: Coded Allergies: No Known Allergies (Unverified , 01/23/12) Patient History Past Medical History: see triage record Past Surgical History: none Pertinent Family History: none Last Menstrual Period: apr Now: No : 3 Para: 1 Reviewed Nursing Documentation: PMH: Agreed; PSxH: Agreed Nursing Documentation-PMH Hx Diabetes: Yes - gestational Review of Systems All Other Systems: negative except mentioned in HPI Physical Exam Vital Signs Date Time Temp Pulse Resp B/P (MAP) Pulse Ox O2 Delivery O2 Flow Rate FiO2 10/11/18 11:57 98.2 79 16 127/85 (99) 98 Room Air Sp02 EP Interpretation: reviewed, normal General Appearance: no apparent distress, alert, GCS 15, non-toxic Head: normocephalic, atraumatic Eyes: bilateral eye normal inspection, bilateral eye PERRL ENT: hearing grossly normal, normal voice Neck: full range of motion, no bony tend Respiratory: chest non-tender, lungs clear, normal breath sounds, speaking full sentences Cardiovascular #1: regular rate, rhythm Musculoskeletal: back normal, gait/station normal, normal range of motion, tender - TTP in the bilateral rhomboid and trapezius musculatures, no midline spinous process tenderness, no step offs, FROM, ambulatory, no saddle anesthesia. Neurologic: alert, oriented x3, responsive, motor strength/tone normal, sensory intact, normal gait, speech normal, no pronator, other - no nystagmus or ataxia, grossly normal Psychiatric: judgement/insight normal Skin: normal color, no rash, warm/dry, well hydrated Lymphatic: no adenopathy Medical Decision Making PA Attestation Dr. Mendoza is my supervising Physician whom patient management has been discussed with. Diagnostic Impression: Primary Impression: Muscle spasm of back ER Course 32-year-old female presents to the emergency department complaining of 6 out of 10 severity intermittent muscle spasms over the course of 4 months. Patient also is reporting new onset of tearfulness, sadness and anxiety-like reactions to tremendous amount of stress that she is going through she denies SI or HI she denies PSAs or illicit drug use she denies previous psychiatric hospitalizations she is interested in some mental health resources. Patient states that she is having difficulty concentrating lately and on occasion forgetfulness where she cannot remember what she is doing. Patient denies difficulty with word recall she denies recent trauma or fall she denies nausea, vomiting, facial droop, unilateral weakness in the extremities or inability to walk. Patient denies Syncope, LOC, dizziness, vertigo or imbalance. She denies chest pain or palpitations. She reports her diet has been somewhat poor lately and she has not been eating and sleeping regularly. Denies hallucinations, delusions or paresthesias. She reports that she has not had a period in 3 months and denies taking control. Ddx considered but are not limited to depression, anxiety, CVA, PTSD, electrolyte imbalance, acute stress reaction, muscle strain/spasm, just to name a few Vital signs: are WNL, pt. is afebrile H&PE are most consistent with recurrent muscle spasms and possible . No focal neuro deficits on exam. NAD, non-toxic in appearance A & O, normal memory. will require Neurological evaluation as an outpatient once cleared of any medical emergency. ORDERS: -Urine HCG: Negative ED INTERVENTIONS: None required at this time. DISCHARGE: At this time pt. is stable for d/c to home. Will provide printed patient care instructions, and any necessary prescriptions. Care plan and follow up instructions have been discussed with the patient prior to discharge. Labs Test 10/11/18 12:49 Last Vital Signs Date Time Temp Pulse Resp B/P (MAP) Pulse Ox O2 Delivery O2 Flow Rate FiO2 10/11/18 11:57 98.2 79 16 127/85 (99) 98 Room Air Disposition: HOME, SELF-CARE Condition: Stable Scripts Cyclobenzaprine Hcl* (FLEXERIL*) 10 Mg Tablet 10 MG ORAL THREE TIMES A DAY for 7 Days, #21 TAB Prov: Brigid Norman 10/11/18 Departure Forms: Return to Work Return to Work Date: Oct 13, 2018 Work Restrictions: None Return to Full Activity: Oct 13, 2018 Patient Instructions: Muscle Cramps and Spasms, [id number], Transient Global Amnesia Additional Instructions: Take medications as directed. Follow up with a Primary Care Provider in 3-5 days For a referral to have NEUROLOGIST Evaluation, even if your symptoms have resolved. --Please review list of primary care clinics, if you do not already have a primary care provider Return sooner to ED if new symptoms occur, or current symptoms become worse. - Please note that this Emergency Department Report was dictated using [employer] chip maker technology software, occasionally this can lead to erroneous entry secondary to interpretation by the dictation equipment. Brigid Norman Oct 11, 2018 12:49
--- NOTE | 2018-10-11 13:40 | NUR ---
ED Nurse Note: urine sent to lab 1300
--- NOTE | 2018-10-11 13:59 | NUR ---
ED Nurse Note: called lab to check on results was told labs just got here. Charge aware and PA aware.
[2018-10-11] MEDS ORDERED: CYCLOBENZAPRINE10 MG ORAL (14:08)
[2018-10-11 14:15] VITALS: BP 127/85
--- NOTE | 2018-10-11 14:17 | NUR ---
ED Nurse Note: Pt cleared by health care Provider for discharge. DC instructions/prescription was given and explained to pt and verbalized understanding of teachings. All medical deviecs such as ID band removed. Pt is AAO x4, ambulatory and left with all personal belongings.
== END 2018-10-11 14:17 | disposition home or self-care (01) ==
LOC: EMR 12:52
DX: M62.830 Muscle spasm of back (principal)
CPT/HCPCS: 81025; 99282

== ENCOUNTER 2020-02-07 20:19 | Emergency (ER) | payer MEDICAID ==
[~2020-02-07] VITALS: Ht 180.3 cm; Wt 138.8 kg
[~2020-02-07 20:19] MED LIST changes: +FERROUS SULFAT325 MG ORAL; +IBU800 MG PO
[2020-02-07 20:25] VITALS: BP 119/66
--- NOTE | 2020-02-07 20:25 | NUR ---
ED Nurse Note: Pt ambulated into ed from home CO left flank pain that radiates to lower left abdomen x 6 days. Pt states that pain is 10/10 and decribes pain as "moving". Pt aao x 4, ambulates with steady gait, VSS no ss of distress noted. pt denies n/v/fever/ diarrhea/ body aches. Pt placed in gown in bed. Awaiting ERMD at bedside. Awaiting further orders. Will continue to monitor.
--- NOTE | 2020-02-07 20:30 | NUR ---
ED Nurse Note: ERMD at bedside
--- NOTE | 2020-02-07 20:32 | NUR ---
ED Nurse Note: all blood work and urine sent to lab. IV initiated see interventions.
--- NOTE | 2020-02-07 20:50 | Emergency Room Report ---
History of Present Illness General Chief Complaint: Abdominal Pain Source: Patient Present Illness HPI Patient complains of left flank pain. Somewhat positional. It has been going on for a 6 days intermittently. She has been taking Tylenol. It has not helped. Rates it as a 9/10. The patient denies any fevers or chills. There is no dysuria. She was treated in the past for urinary tract infection. Started Depo-Provera January 22. She works at a hotel and sits at a desk. The patient rates the pain 10/10 at this time. It is mainly in the lower spine SI joint area. It radiates somewhat to the flank. She denies abdominal pain. She denies history of renal stones or family history of such. She has been wearing a mask and is protected behind plastic at the hotel. No Covid symptoms. No sore throat, chest pain, palpitations, nausea, vomiting, diarrhea, shortness of breath, rashes, headache. Of note the patient has been seen twice here for low back problems. She was evaluated in May 2013 for low back pain without radiculopathy. She was seen in September of last year for back pain and stress. At those times she was given analgesics and also Flexeril. Allergies: Coded Allergies: No Known Allergies (Unverified , 04/22/19) COVID-19 Screening Contact w/high risk pt: No Experienced COVID-19 symptoms?: No COVID-19 Testing performed PHOTOLITH OPERATOR: No Patient History Past Medical History: see triage record, old chart reviewed Past Surgical History: Social History: Denies: smoking - INR Social History Narrative Works at a hotel Last Menstrual Period: january 07 Now: No : 4 Para: 1 Reviewed Nursing Documentation: PMH: Agreed; PSxH: Agreed Nursing Documentation-PMH Past Medical History: No History, Except For Hx Diabetes: Yes - gestational Review of Systems All Other Systems: negative except mentioned in HPI Physical Exam Vital Signs Date Time Temp Pulse Resp B/P (MAP) Pulse Ox O2 Delivery O2 Flow Rate FiO2 02/07/20 20:25 97.9 79 18 119/66 (83) 98 Room Air Sp02 EP Interpretation: reviewed, normal General Appearance: well appearing, no apparent distress, GCS 15 Head: normocephalic Eyes: bilateral eye normal inspection, bilateral eye PERRL, bilateral eye EOMI ENT: moist mucus membranes Neck: supple Respiratory: lungs clear, normal breath sounds Cardiovascular #1: regular rate, rhythm Cardiovascular #2: 2+ radial (R) Gastrointestinal: normal inspection, normal bowel sounds, non tender, no mass, non-distended, overweight Musculoskeletal: normal range of motion, gait/station normal, tender - Left lumbar and SI area, other - Straight leg raise negative left Neurologic: alert, oriented x3, grossly normal Psychiatric: mood/affect normal Skin: no rash, warm/dry Medical Decision Making Diagnostic Impression: Primary Impression: Flank pain Additional Impression: Lumbar pain ER Course Patient presents with flank and lower back pain intermittently for 6 days. Differential includes renal stone, pyelonephritis, UTI, dysmenorrhea, lumbar strain, sacroiliitis amongst others. Evaluation with labs and x-ray. Patient treated with Reglan, Benadryl and Toradol. Labs with normal CBC. CMP unremarkable. Urinalysis with 0-2 white cells and 0- 2 red cells. X-ray with gas and slight DJD of L5-S1. Patient improved with treatment. Discussed results with patient. Discussed the need for outpatient reevaluation and possibly physical therapy. Patient stable for outpatient observation and treatment. Laboratory Tests Test 02/07/20 20:45 White Blood Count 8.8 K/UL (4.8-10.8) Red Blood Count 4.55 M/UL (4.20-5.40) Hemoglobin 12.3 G/DL (12.0-16.0) Hematocrit 37.7 % (37.0-47.0) Mean Corpuscular Volume 83 FL (80-99) Mean Corpuscular Hemoglobin 27.1 PG (27.0-31.0) Mean Corpuscular Hemoglobin Concent 32.7 G/DL (32.0-36.0) Red Cell Distribution Width 14.6 % (11.6-14.8) Platelet Count 244 K/UL (150-450) Mean Platelet Volume 9.3 FL (6.5-10.1) Neutrophils (%) (Auto) 50.7 % (45.0-75.0) Lymphocytes (%) (Auto) 40.2 % (20.0-45.0) Monocytes (%) (Auto) 5.1 % (1.0-10.0) Eosinophils (%) (Auto) 2.5 % (0.0-3.0) Basophils (%) (Auto) 1.5 % (0.0-2.0) Prothrombin Time 10.5 SEC (9.30-11.50) Prothrombin Time INR 0.9 (0.9-1.1) Activated Partial Thromboplast Time 28 SEC (23-33) Urine Color Pale yellow Urine Appearance Clear Urine pH 6 (4.5-8.0) Urine Specific [place] 1.015 (1.005-1.035) Urine Protein Negative (NEGATIVE) Urine Glucose (UA) Negative (NEGATIVE) Urine Ketones Negative (NEGATIVE) Urine Blood 2+ (NEGATIVE) H Urine Nitrite Negative (NEGATIVE) Urine Bilirubin Negative (NEGATIVE) Urine Urobilinogen Normal MG/DL (0.0-1.0) Urine Leukocyte Esterase 1+ (NEGATIVE) H Urine RBC 0-2 /HPF (0 - 2) Urine WBC 0-2 /HPF (0 - 2) Urine Squamous Epithelial Cells Many /LPF (NONE/OCC) H Urine Bacteria Few /HPF (NONE) Urine HCG, Qualitative Negative (NEGATIVE) Sodium Level 139 MMOL/L (136-145) Potassium Level 3.3 MMOL/L (3.5-5.1) L Chloride Level 104 MMOL/L (98-107) Carbon Dioxide Level 26 MMOL/L (21-32) Anion Gap 9 mmol/L (5-15) Blood Urea Nitrogen 11 mg/dL (7-18) Creatinine 1.1 MG/DL (0.55-1.30) Estimated Glomerular Filtration Rate > 60 mL/min (>60) Glucose Level 98 MG/DL (74-106) Calcium Level 9.0 MG/DL (8.5-10.1) Total Bilirubin 0.3 MG/DL (0.2-1.0) Aspartate Amino Transferase (AST) 14 U/L (15-37) L Alanine Aminotransferase (ALT) 12 U/L (12-78) Alkaline Phosphatase 79 U/L (46-116) Total Protein 7.3 G/DL (6.4-8.2) Albumin 3.8 G/DL (3.4-5.0) Globulin 3.5 g/dL Albumin/Globulin Ratio 1.1 (1.0-2.7) Lipase 127 U/L (73-393) Other X-Ray Diagnostic Results Other X-Ray Diagnostic Results : X-Ray ordered: Lumbar sacral spine films # of Views/Limited Vs Complete: 3 View Indication: Pain Interpretation: no dislocation, no soft tissue swelling, no fractures, other - Increased gas, DJD L5-S1 Impression: Other Electronically Signed by: Electronically signed by Charles Hall MD Last Vital Signs Date Time Temp Pulse Resp B/P (MAP) Pulse Ox O2 Delivery O2 Flow Rate FiO2 02/07/20 23:00 97.8 73 16 125/69 98 Room Air Status: improved Disposition: HOME, SELF-CARE Condition: Improved Scripts Ibuprofen* (MOTRIN*) 600 Mg Tablet 600 MG ORAL Q6H PRN for FOR PAIN, #20 TAB 0 Refills Prov: Charles Hall MD 02/07/20 Charles Hall MD Feb 07, 2020 20:50
[2020-02-07] MEDS ORDERED: Ketorolac 30mg Inj IV ONE (21:00)
[2020-02-07] MEDS ORDERED: Metoclopramide 10mg/2ml Inj IVP ONE (21:00)
[2020-02-07] MEDS ORDERED: DiphenhydrAMINE 50mg/ml Inj IVP ONE (21:00)
--- NOTE | 2020-02-07 21:00 | NUR ---
ED Nurse Note: all medications administered, pt tolerated well no ss of distress noted. willl continue to monitor.
[2020-02-07 21:12] LABS: APPEARANCE,URINE CLEAR; BASOPHILS % (AUTO) 1.5 % (0.0-2.0); BILIRUBIN, URINE NEGATIVE (NEGATIVE); COLOR,URINE PALE YELLOW; EOSINOPHILS % (AUTO) 2.5 % (0.0-3.0); GLUCOSE, URINE (UA) NEGATIVE (NEGATIVE); HEMATOCRIT 37.7 % (37.0-47.0); HEMOGLOBIN 12.3 G/DL (12.0-16.0); KETONES,URINE NEGATIVE (NEGATIVE); LEUKOCYTE ESTERASE ,URINE 1+ (NEGATIVE); LYMPHOCYTES % (AUTO) 40.2 % (20.0-45.0); MEAN CORPUSCULAR VOLUME 83 FL (80-99); MONOCYTES % (AUTO) 5.1 % (1.0-10.0); NEUTROPHILS % (AUTO) 50.7 % (45.0-75.0); NITRITE,URINE NEGATIVE (NEGATIVE); PH,URINE 6 (4.5-8.0); PLATELET COUNT 244 K/UL (150-450); PROTEIN,URINE NEGATIVE (NEGATIVE); RED BLOOD COUNT 4.55 M/UL (4.20-5.40); RED CELL DISTRIBUTION WIDTH 14.6 % (11.6-14.8); UROBILINOGEN,URINE NORMAL MG/DL (0.0-1.0); WHITE BLOOD COUNT 8.8 K/UL (4.8-10.8)
[2020-02-07 21:30] LABS: ANION GAP 9 mmol/L (5-15); BLOOD UREA NITROGEN 11 mg/dL (7-18); CARBON DIOXIDE 26 MMOL/L (21-32); CHLORIDE 104 MMOL/L (98-107); CREATININE 1.1 MG/DL (0.55-1.30); INR 0.9 (0.9-1.1); POTASSIUM 3.3 MMOL/L (3.5-5.1); SODIUM 139 MMOL/L (136-145)
[2020-02-07 21:34] LABS: ALANINE AMINOTRANSFERASE 12 U/L (12-78); ALBUMIN 3.8 G/DL (3.4-5.0); ALBUMIN/GLOBULIN RATIO 1.1 (1.0-2.7); ALKALINE PHOSPHATASE 79 U/L (46-116); ASPARTATE AMINO TRANSFERASE 14 U/L (15-37); BILIRUBIN,TOTAL 0.3 MG/DL (0.2-1.0)
--- NOTE | 2020-02-07 21:59 | Diagnostic Imaging Report ---
EXAM: XR Lumbosacral Spine, 2 or 3 Views CLINICAL HISTORY: PAIN TECHNIQUE: Frontal and lateral views of the lumbar spine and sacrum. COMPARISON: None FINDINGS: Vertebrae: There is no acute fracture or dislocation. The lumbar vertebral body heights are maintained. Sacrum/coccyx: Unremarkable as visualized. No acute fracture. Disc spaces: There is prominent degenerative disc disease at L5-S1. Soft tissues: Unremarkable. IMPRESSION: No acute fracture or dislocation.
--- NOTE | 2020-02-07 22:40 | NUR ---
ED Nurse Note: ERMD at bedside
[2020-02-07] MEDS ORDERED: IBUPROFEN600 M1 ORAL (22:46)
[2020-02-07 23:00] VITALS: BP 125/69
--- NOTE | 2020-02-07 23:00 | NUR ---
ER DISCHARGE NOTE: Patient is cleared to be discharged home per ERMD, pt is aox4, 99% on room air, with stable vital signs. pt was given dc and prescription instructions, pt was able to verbalize understanding, pt id band and iv site removed without complications. pt is able to ambulate with steady gait. pt took all belongings.
== END 2020-02-07 23:00 | disposition home or self-care (01) ==
LOC: EMR 20:45
DX: R10.9 Unspecified abdominal pain (principal); M54.5 Low back pain; E66.3 Overweight; M47.817 Spondylosis without myelopathy or radiculopathy, lumbosacral region; Z68.41 Body mass index [BMI] 40.0-44.9, adult
CPT/HCPCS: 36415; 72020; 80053; 81003; 81025; 83690; 85025; 85610; 85730; 96374; 96375; J1200; J1885; J2765; Z7502; 99284

== ENCOUNTER 2020-05-27 08:06 | Emergency (ER) | payer MEDICAID ==
[~2020-05-27] VITALS: Ht 180.3 cm; Wt 136.1 kg
[~2020-05-27 08:06] MED LIST changes: +IBUPROFEN600 M1 ORAL
[2020-05-27] MEDS ORDERED: CYCLOBENZAPRINE5 MG ORAL (08:24)
[2020-05-27] MEDS ORDERED: NAPROXEN500 M1 ORAL (08:24)
[2020-05-27 08:26] VITALS: BP 135/78
--- NOTE | 2020-05-27 08:30 | Emergency Room Report ---
History of Present Illness General Chief Complaint: Pain Source: Patient Present Illness HPI Disclaimer: Please note that this report is being documented using DRAGON technology. This can lead to erroneous entry secondary to incorrect interpretation by the dictating instrument. HPI: 34-year-old female presents with right shoulder pain. She describes it is posterior radiating around the front. Worse with movement. She denies any chest pain shortness of breath nausea or vomiting. No fevers or cough. She denies any specific injury. She states she has had surgery on the shoulder in the past. Pain is currently about 8 out of 10. PMH: Distant right shoulder surgery PSH: Reviewed Social Hx: Denies smoking drinking or illicit drug use Allergies: Coded Allergies: No Known Allergies (Unverified , 04/22/19) COVID-19 Screening Contact w/high risk pt: No Experienced COVID-19 symptoms?: No COVID-19 Testing performed [employer]: Yes COVID-19 Screening: Negative COVID-19 COVID-19 Testing Source: [employer] Patient History Now: No Reviewed Nursing Documentation: PMH: Agreed; PSxH: Agreed Nursing Documentation-PMH Past Medical History: No History, Except For Hx Diabetes: Yes - gestational Review of Systems All Other Systems: negative except mentioned in HPI Physical Exam Vital Signs Date Time Temp Pulse Resp B/P (MAP) Pulse Ox O2 Delivery O2 Flow Rate FiO2 05/27/20 08:11 99.0 80 18 112/63 (79) 95 Room Air Sp02 EP Interpretation: reviewed, normal General Appearance: well appearing, no apparent distress Head: normocephalic, atraumatic Eyes: bilateral eye PERRL, bilateral eye EOMI ENT: hearing grossly normal, moist mucus membranes Neck: full range of motion, supple Respiratory: lungs clear, normal breath sounds, no rhonchi, no respiratory distress, no retraction, no wheezing Cardiovascular #1: normal peripheral pulses, regular rate, rhythm, no murmur Gastrointestinal: non tender, soft, non-distended, no guarding Musculoskeletal: other - Right shoulder full range of motion with some pain. Tenderness in the posterior scapular area. No deformity. Sensation and pulses intact throughout. Neurologic: alert, oriented x3, no focal defects Skin: normal color, warm/dry Medical Decision Making Diagnostic Impression: Primary Impression: Shoulder pain, right ER Course Patient presents with right shoulder pain. Differential included but not limited to sprain, rotator cuff injury, arthritis, less likely fracture, dislocation, infectious process. Patient was in no acute distress. Exam demonstrated mild posterior right shoulder tenderness. I did offer x-ray however patient declined. I do suspect most likely a musculoskeletal etiology including rotator cuff injury. I will provide analgesics, muscle relaxants. I recommended follow-up with her primary care doctor and discuss referral to orthopedics and physical therapy stable for discharge. Last Vital Signs Date Time Temp Pulse Resp B/P (MAP) Pulse Ox O2 Delivery O2 Flow Rate FiO2 05/27/20 08:11 99.0 80 18 112/63 (79) 95 Room Air Disposition: HOME, SELF-CARE Condition: Stable Scripts Cyclobenzaprine Hcl (CYCLOBENZAPRINE HCL) 5 Mg Tablet 5 MG ORAL QHS PRN for shoulder pain, #10 TAB Prov: Ernesto Self M.D. 05/27/20 Naproxen* (NAPROXEN*) 500 Mg Tablet.dr 500 MG ORAL TWICE A DAY PRN for For Pain, #20 TAB Prov: Ernesto Self M.D. 05/27/20 Patient Instructions: Shoulder Pain, [id number] Additional Instructions: I would recommend you follow-up with your primary care doctor and discuss referral to orthopedics and possibly physical therapy. Patient is instructed to follow-up with her primary care doctor, primary care clinic or [facility] in 1 to 2 days. Patient instructed to return for any worsening symptoms or concerns. Ernesto Self M.D. May 27, 2020 08:30
== END 2020-05-27 09:19 | disposition home or self-care (01) ==
LOC: EMR 08:33
DX: M25.511 Pain in right shoulder (principal)
CPT/HCPCS: 99282